=== PATIENT | female | born 1945 | race Hispanic/Latino ===

== ENCOUNTER 2021-02-05 10:54 | Inpatient (IN) | payer OTHER, SELFPAY ==
[2021-02-05 11:51] LABS: #Basophils 0.1 thou/uL (0.0-0.2); #Eosinphils 0.2 thou/uL (0.0-0.7); #Lymphocytes 2.6 thou/uL (1.20-3.40); #Monocytes 0.9 thou/uL (0.11-0.59); #Neutrophils 5.1 thou/uL (1.40-6.50); %Basophils 0.7 % (0.0-1.0); %Lymphocytes 29.2 % (21.0-51.0); %Monocytes 10.2 % (0.0-10.0); Hemoglobin 11.1 g/dL (12.0-16.0); Mean Corpuscular HGB CONC 34.9 g/dL (32.0-36.0); Mean Corpuscular Hemoglobin 30.2 pg (27.0-31.0); Mean Corpuscular Volume 86.6 fL (78.0-98.0); Mean Platelet Volume 8.2 fL (7.4-10.4); Platelet Count 223 thou/uL (130-400); RBC Distribution Width 12.3 % (11.5-14.5); Red Blood Cell (RBC) Count 3.68 mill/uL (4.20-5.40); White Blood Cell (WBC) Count 8.7 thou/uL (4.8-10.8)
[2021-02-05 12:13] LABS: ALT (SGPT) 13 U/L (8-55); AST (SGOT) 17 U/L (5-34); Albumin 4.1 g/dL (3.4-4.8); Alkaline Phosphatase 57 U/L (40-110); Anion Gap 14 mmol/L (10-20); BUN (Urea Nitrogen) 30 mg/dL (9.8-20.1); Bilirubin, Total 0.5 mg/dL (0.2-1.2); Calc. Creatinine Clearance 0 mL/min (70-130); Calcium 9.5 mg/dL (7.8-10.44); Carbon Dioxide 22 mmol/L (23-31); Chloride 105 mmol/L (98-107); Globulin 2.8 g/dL (2.4-3.5); Glucose 130 mg/dL (83-110); Potassium 4.1 mmol/L (3.5-5.1); Protein, Total 6.9 g/dL (5.8-8.1); Sodium 137 mmol/L (136-145)
[2021-02-05] MEDS ORDERED: Morphine 4 MG/ML VIAL ONE (12:13)
[2021-02-05] MEDS ORDERED: Bacitracin 1 PK ONE (12:14)
[2021-02-05] MEDS ORDERED: traMADol HCl 50 MG TAB ONE (13:35)
[2021-02-05] MEDS ORDERED: Dextrose 50% Abboject 50 ML SYRINGE SLOW IVP PRN (13:36)
[2021-02-05] MEDS ORDERED: Dextrose 5% in Water 1,000 ML IV PRN (13:36)
[2021-02-05] MEDS ORDERED: traMADol HCl 50 MG TAB PO PRN (13:42)
[2021-02-05] MEDS ORDERED: Gabapentin 100 MG CAP PO SCH (13:45)
[2021-02-05] MEDS ORDERED: Acetaminophen 500 MG TAB ONE (13:56)
[2021-02-05 14:28] LABS: SARS-CoV-2 NAA Rapid Test Not Detected (NotDetected)
[2021-02-05] MEDS ORDERED: Fentanyl 100 MCG/2 ML VIAL ONE ×3 (16:15→18:54)
[2021-02-05] MEDS ORDERED: Rocuronium Bromide 10 MG/ML (10ML VIAL) ONE (17:33)
[2021-02-05] MEDS ORDERED: Ondansetron PF 4 MG/2 ML Vial ONE (17:33)
[2021-02-05] MEDS ORDERED: Succinylcholine 200 MG/10 ml SYRINGE FS ONE (17:33)
[2021-02-05] MEDS ORDERED: PROPOFOL 200 MG/20 ML VIAL ONE (17:33)
[2021-02-05] MEDS ORDERED: Dexamethasone 20 MG/5 ML VIAL ONE (17:33)
[2021-02-05] MEDS ORDERED: PHENYLEPHRINE-NS 100 MCG/ML 10 ML SYRINGE ONE (17:33)
[2021-02-05] MEDS ORDERED: Glycopyrrolate 0.2 MG/ML 5 ML SYRINGE ONE (17:33)
[2021-02-05] MEDS ORDERED: Acetaminophen 325 MG TAB PO SCH (18:00)
[2021-02-05] MEDS ORDERED: SUGAMMADEX SODIUM 200 MG/2 ML VIAL ONE (18:32)
[2021-02-05] MEDS ORDERED: Ondansetron HCl/PF 4 MG/2 ML Vial IVP PRN (18:43)
[2021-02-05] MEDS ORDERED: hydrALAZINE 20 MG/ML VIAL ONE (18:56)
[2021-02-05] MEDS: Ondansetron PF 4 MG/2 ML Vial IVP PRN (20:18)
[2021-02-05] MEDS: traMADol HCl 50 MG TAB PO SCH ×3 (21:33→22:02)
[2021-02-05] MEDS: Atorvastatin Calcium 40 MG TAB PO SCH ×2 (21:34→21:41)
[2021-02-05] MEDS: Famotidine 20 MG TAB PO SCH ×2 (21:34→21:40)
[2021-02-05 22:23] VITALS: BMI 29.4
[2021-02-05] MEDS: CEFAZOLIN 2 GM in Premix Bag 1 BAG IVPB SCH ×2 (22:45→22:47)
[2021-02-06] MEDS: Ondansetron PF 4 MG/2 ML Vial IVP PRN ×2 (03:34→09:39)
[2021-02-06] MEDS: Acetaminophen 325 MG TAB PO SCH ×4 (04:16→22:23)
[2021-02-06] MEDS: traMADol HCl 50 MG TAB PO SCH ×4 (04:17→22:25)
[2021-02-06 05:44] LABS: #Lymphocytes 0.8 thou/uL (1.20-3.40); #Monocytes 0.6 thou/uL (0.11-0.59); #Neutrophils 10.4 thou/uL (1.40-6.50); %Lymphocytes 6.8 % (21.0-51.0); %Neutrophils 88.2 % (42.0-75.0); Hemoglobin 9.5 g/dL (12.0-16.0); Mean Corpuscular HGB CONC 33.3 g/dL (32.0-36.0); Mean Corpuscular Hemoglobin 29.1 pg (27.0-31.0); Mean Corpuscular Volume 87.6 fL (78.0-98.0); Mean Platelet Volume 8.1 fL (7.4-10.4); Platelet Count 192 thou/uL (130-400); RBC Distribution Width 12.5 % (11.5-14.5); Red Blood Cell (RBC) Count 3.27 mill/uL (4.20-5.40); White Blood Cell (WBC) Count 11.8 thou/uL (4.8-10.8)
[2021-02-06 06:06] LABS: Anion Gap 14 mmol/L (10-20); BUN (Urea Nitrogen) 28 mg/dL (9.8-20.1); Calc. Creatinine Clearance 34 mL/min (70-130); Calcium 9.2 mg/dL (7.8-10.44); Carbon Dioxide 22 mmol/L (23-31); Chloride 107 mmol/L (98-107); Glucose 159 mg/dL (83-110); Magnesium 1.4 mg/dL (1.6-2.6); Phosphorus 3.3 mg/dL (2.3-4.7); Potassium 4.5 mmol/L (3.5-5.1); Sodium 138 mmol/L (136-145)
[2021-02-06] MEDS: CEFAZOLIN 2 GM in Premix Bag 1 BAG IVPB SCH ×3 (06:19→14:26)
[2021-02-06] MEDS ORDERED: Pantoprazole 40 MG GRANULES PACKET PO SCH (09:00)
[2021-02-06] MEDS ORDERED: Valsartan 80 MG TAB PO SCH (09:00)
[2021-02-06] MEDS ORDERED: Bisoprolol Fumarate 5 MG TAB PO SCH (09:00)
[2021-02-06] MEDS: Bisoprolol Fumarate 5 MG TAB PO SCH (09:37)
[2021-02-06] MEDS: Valsartan 80 MG TAB PO SCH ×2 (09:38→21:53)
[2021-02-06] MEDS: Senokot S 8.6-50 MG TAB PO SCH ×2 (09:38→21:54)
[2021-02-06] MEDS: Famotidine 20 MG TAB PO SCH ×2 (09:38→21:54)
[2021-02-06] MEDS ORDERED: Magnesium 2 GM/50 ML 2 GM in Premix Bag 1 BAG IVPB SCH (17:00)
[2021-02-06] MEDS ORDERED: Aspirin 81 mg Enteric Coated Tablet PO SCH (21:00)
[2021-02-06] MEDS ORDERED: Heparin 5,000 UNITS/ML VIAL SC SCH (21:00)
[2021-02-06] MEDS: Atorvastatin Calcium 20 MG TAB PO SCH (21:54)
[2021-02-07] MEDS: traMADol HCl 50 MG TAB PO SCH ×2 (04:19→09:28)
[2021-02-07] MEDS: Acetaminophen 325 MG TAB PO SCH ×4 (04:23→21:45)
[2021-02-07 05:39] LABS: #Eosinphils 0.1 thou/uL (0.0-0.7); #Monocytes 1.3 thou/uL (0.11-0.59); #Neutrophils 8.5 thou/uL (1.40-6.50); %Basophils 0.4 % (0.0-1.0); %Eosinophils 0.6 % (0.0-10.0); %Lymphocytes 16.4 % (21.0-51.0); %Monocytes 11.2 % (0.0-10.0); %Neutrophils 71.4 % (42.0-75.0); Hemoglobin 8.2 g/dL (12.0-16.0); Mean Corpuscular Hemoglobin 29.2 pg (27.0-31.0); Mean Corpuscular Volume 88.7 fL (78.0-98.0); Mean Platelet Volume 8.4 fL (7.4-10.4); Platelet Count 188 thou/uL (130-400); RBC Distribution Width 12.6 % (11.5-14.5); White Blood Cell (WBC) Count 11.9 thou/uL (4.8-10.8)
[2021-02-07 08:45] LABS: Anion Gap 10 mmol/L (10-20); BUN (Urea Nitrogen) 39 mg/dL (9.8-20.1); Calc. Creatinine Clearance 29 mL/min (70-130); Calcium 8.9 mg/dL (7.8-10.44); Carbon Dioxide 26 mmol/L (23-31); Chloride 104 mmol/L (98-107); Glucose 100 mg/dL (83-110); Magnesium 2.2 mg/dL (1.6-2.6); Phosphorus 3.8 mg/dL (2.3-4.7); Potassium 4.2 mmol/L (3.5-5.1); Sodium 136 mmol/L (136-145)
[2021-02-07] MEDS ORDERED: Magnesium 2 GM/50 ML 2 GM in Premix Bag 1 BAG IVPB SCH (08:45)
[2021-02-07] MEDS ORDERED: traMADol HCl 50 MG TAB PO PRN (09:00)
[2021-02-07] MEDS: Ascorbic Acid 500 mg Chewable Tablet PO SCH (09:25)
[2021-02-07] MEDS: Ferrous Sulfate 325 MG TAB PO SCH (09:25)
[2021-02-07] MEDS: Valsartan 80 MG TAB PO SCH ×2 (09:25→21:00)
[2021-02-07] MEDS: Senokot S 8.6-50 MG TAB PO SCH ×2 (09:26→20:59)
[2021-02-07] MEDS: Famotidine 20 MG TAB PO SCH ×2 (09:26→20:59)
[2021-02-07] MEDS: Bisoprolol Fumarate 5 MG TAB PO SCH (09:26)
[2021-02-07] MEDS ORDERED: Acetaminophen/Codeine 30-300mg Tablet PO SCH (10:00)
[2021-02-07] MEDS: Clopidogrel Bisulfate 75 MG TAB PO SCH (11:45)
[2021-02-07] MEDS: Acetaminophen/Codeine 30-300mg Tablet PO PRN (13:00)
[2021-02-07] MEDS ORDERED: Sodium Chloride 0.9% 500 ML IV SCH (16:30)
[2021-02-07] MEDS: Atorvastatin Calcium 20 MG TAB PO SCH (20:59)
[2021-02-08] MEDS: Acetaminophen 325 MG TAB PO SCH ×4 (04:15→21:21)
[2021-02-08] MEDS: Senokot S 8.6-50 MG TAB PO SCH ×2 (08:09→21:19)
[2021-02-08] MEDS: Ascorbic Acid 500 mg Chewable Tablet PO SCH (08:09)
[2021-02-08] MEDS: Acetaminophen/Codeine 30-300mg Tablet PO PRN ×2 (08:10→15:11)
[2021-02-08] MEDS: Ferrous Sulfate 325 MG TAB PO SCH (08:10)
[2021-02-08] MEDS: Bisoprolol Fumarate 5 MG TAB PO SCH (08:10)
[2021-02-08] MEDS: Valsartan 80 MG TAB PO SCH ×2 (08:10→21:20)
[2021-02-08] MEDS: Famotidine 20 MG TAB PO SCH (08:10)
[2021-02-08] MEDS: Polyethylene Glycol 3350 17 GM Packet PO SCH (08:11)
[2021-02-08] MEDS: Clopidogrel Bisulfate 75 MG TAB PO SCH (12:09)
[2021-02-08] MEDS: Ipratropium Oral Inhaler INH SCH (13:20)
[2021-02-08] MEDS ORDERED: Senokot S 8.6-50 MG TAB PO SCH (21:00)
[2021-02-08] MEDS: guaiFENesin ER 600 MG TAB PO SCH (21:21)
[2021-02-08] MEDS: Atorvastatin Calcium 20 MG TAB PO SCH (21:21)
[2021-02-09] MEDS: Acetaminophen/Codeine 30-300mg Tablet PO PRN ×2 (05:18→12:00)
[2021-02-09] MEDS: Ipratropium Oral Inhaler INH SCH ×5 (06:46→19:03)
[2021-02-09] MEDS: Acetaminophen 325 MG TAB PO SCH ×4 (07:36→22:52)
[2021-02-09] MEDS ORDERED: Polyethylene Glycol 3350 17 GM Packet PO SCH (09:00)
[2021-02-09] MEDS: Valsartan 80 MG TAB PO SCH ×2 (09:42→20:38)
[2021-02-09] MEDS: Ferrous Sulfate 325 MG TAB PO SCH (09:42)
[2021-02-09] MEDS: guaiFENesin ER 600 MG TAB PO SCH (09:42)
[2021-02-09] MEDS: Ascorbic Acid 500 mg Chewable Tablet PO SCH (09:43)
[2021-02-09] MEDS: Bisoprolol Fumarate 5 MG TAB PO SCH (09:43)
[2021-02-09] MEDS: Polyethylene Glycol 3350 17 GM Packet PO SCH (10:03)
[2021-02-09] MEDS: Senokot S 8.6-50 MG TAB PO SCH ×2 (10:03→20:38)
[2021-02-09] MEDS: Clopidogrel Bisulfate 75 MG TAB PO SCH (12:00)
[2021-02-09] MEDS: Atorvastatin Calcium 20 MG TAB PO SCH (20:38)
[2021-02-10 04:07] VITALS: TEMP 98.1
[2021-02-10] MEDS: Acetaminophen 325 MG TAB PO SCH ×2 (05:15→08:45)
[2021-02-10] MEDS: Acetaminophen/Codeine 30-300mg Tablet PO PRN ×2 (06:50→13:37)
[2021-02-10] MEDS: Ipratropium Oral Inhaler INH SCH ×2 (07:39→13:57)
[2021-02-10] MEDS: Ascorbic Acid 500 mg Chewable Tablet PO SCH (08:42)
[2021-02-10] MEDS: Valsartan 80 MG TAB PO SCH (08:43)
[2021-02-10] MEDS: Bisoprolol Fumarate 5 MG TAB PO SCH (08:44)
[2021-02-10] MEDS: Ferrous Sulfate 325 MG TAB PO SCH (08:44)
[2021-02-10] MEDS: Polyethylene Glycol 3350 17 GM Packet PO SCH (08:45)
[2021-02-10] MEDS: Senokot S 8.6-50 MG TAB PO SCH (08:46)
[2021-02-10] MEDS ORDERED: Bisoprolol Fumarate 5 MG TAB PO SCH (11:15)
[2021-02-10] MEDS: Clopidogrel Bisulfate 75 MG TAB PO SCH (11:34)
[2021-02-10 12:03] VITALS: BP 104/62
== END 2021-02-10 14:25 | DRG 482 ==
LOC: ERS 10:54 → SDC 14:50 → SURG B 18:56
PROVIDERS: ADMIT Surgery; ATTEND Surgery
PROC: 0QH734Z Insertion of Internal Fixation Device into Left Upper Femur, Percutaneous Approach (ICD-10-PCS; principal; 2021-02-05)
DX: S72.142A Displaced intertrochanteric fracture of left femur, initial encounter for closed fracture (principal); Z20.822 Contact with and (suspected) exposure to COVID-19; Z23 Encounter for immunization; N18.30 Chronic kidney disease, stage 3 unspecified; J44.9 Chronic obstructive pulmonary disease, unspecified; E78.5 Hyperlipidemia, unspecified; I25.10 Atherosclerotic heart disease of native coronary artery without angina pectoris; I12.9 Hypertensive chronic kidney disease with stage 1 through stage 4 chronic kidney disease, or unspecified chronic kidney disease; W01.0XXA Fall on same level from slipping, tripping and stumbling without subsequent striking against object, initial encounter; F41.9 Anxiety disorder, unspecified; Z87.11 Personal history of peptic ulcer disease; Z87.440 Personal history of urinary (tract) infections; Y92.512 Supermarket, store or market as the place of occurrence of the external cause; Z95.1 Presence of aortocoronary bypass graft; Z90.49 Acquired absence of other specified parts of digestive tract; Z79.899 Other long term (current) drug therapy; Z79.02 Long term (current) use of antithrombotics/antiplatelets; Z82.3 Family history of stroke; Z83.3 Family history of diabetes mellitus; Z88.2 Allergy status to sulfonamides
CPT/HCPCS: 36415; 71045; 76000; 80048; 80053; 83735; 84100; 85025; 86850; 86900; 86901; 90471; 90732; 93005; 94640; 94760; 96374; C1713; G0009; G0390; J0360; J0690; J1100; J1644; J2270; J2405; J2704; J3010; J3475; J7620; U0002; U0005

== ENCOUNTER 2021-02-14 16:02 | Outpatient (CLI) | payer SELFPAY | END 2021-02-14 16:03 | disposition home or self-care (01) | LOC: ULT 16:02 | PROVIDERS: ATTEND Family Medicine | DX: M79.89 Other specified soft tissue disorders (principal) ==